=== PATIENT | male | born 1940 | race Caucasian/White ===

== ENCOUNTER → 2018-09-12 07:42 | Outpatient (CLI) | payer MEDICARE, SELFPAY ==
--- NOTE | 2018-09-12 07:44 | CA_ITS ---
PROCEDURE: 2-D M-mode and color Doppler study INDICATIONS FOR THE TEST: Chest pain + COPD Heart Murmur Tobacco Smokingex Palpitations+ Fatigue+ Syncope Edema Hypertension+Diabetes Mellitus Rheumatic Fever SOB+LOPEZ Obesity Hyperlipidemia Family History HD Additional History CABG PATIENT INFORMATION HEIGHT: 70 WEIGHT:169 GENDER: Male B/P:131/79 2-D/M-MODE INTERPRETATION: 2-D MEASUREMENTS OBSERVED VALUES IN CMS Right Ventricular Dimension (RVDd) 3.2 Interventricular Septum (Thickness)(IVsd) 1.6 Left Ventricular Internal Dimensions(LVIDd) 6.7 Left Ventricular Posterior Wall (Thickness)(LVPWd) 1.1 Aortic Root 3.1 Aortic Cusp Separation 2.6 Left Atrial Dimensions (LAD) 5.7 2D 1. Left atrium is moderately enlarged, left ventricle is mildly dilated, there is mild concentric left ventricular hypertrophy, visually estimated ejection fraction 50-55% with no regional wall motion abnormality, endocardial surface of poorly visualized 2. The right atrium and right ventricle are mildly enlarged with normal contractility. 3. The aortic valve is thickened and calcified, leaflet continue to display mobility. 4. The mitral valve has mitral calcification, there is mitral valve prolapse seen of the posterior mitral leaflet. There is no mitral stenosis. 5. The tricuspid valve is grossly normal. 6. The pulmonic valve is poorly present. 7. No significant pericardial effusion noted. DOPPLER INTERROGATION: Doppler interrogation of the aortic, mitral and tricuspid valvular presence of moderate aortic, severe mitral and mild tricuspid regurgitation, tricuspid regurgitation jet is inadequate for calculation of the right ventricular systolic pressure, diastolic parameters are inconclusive. CONCLUSION: 1. Moderately enlarged left atrium, mildly dilated left ventricle, mild concentric left ventricular hypertrophy, visually estimated ejection fraction 50-55% with no regional wall motion abnormality, diastolic parameters are inconclusive. 2. Thickened and calcified aortic valve without aortic stenosis, there is moderate aortic insufficiency. 3. Abnormal mitral valve as described above with prolapse of the posterior mitral leaflet, there is severe mitral regurgitation, there is no mitral stenosis. 4. Mild tricuspid regurgitation 5. The transesophageal echocardiogram is recommended for further evaluation of the aortic and mitral valve disease.
--- NOTE | 2018-09-12 08:04 | NM_ITS ---
CARDIOLITE SPECT MYOCARDIAL PERFUSION LEXISCAN, REST AND STRESS: [facility] REVIEW QGS EF AND WALL MOTION EVALUATION: QPS - PERFUSION EVALUATION HISTORY: a-fib DOSE: 10.6 mCi technetium 99m mibi intravenously at rest followed by 31.2 mCi technetium 99m mibi following the intravenous ministration of 0.4 mg of Lexiscan. Resting blood pressure is 116/63. Stress blood pressure 103/50. FINDINGS: Ejection fraction is calculated to be 50%. Stress images reveal mildly decreased activity in the inferior wall with mild left ventricular dilatation. Rest images reveal moderately decreased activity within the inferior wall. Gated images calculated ejection fraction of 50% with normal wall motion IMPRESSION: Reverse redistribution in the inferior wall accompanied by left ventricular dilatation and normal ejection fraction.. Clinical correlation is advised
--- NOTE | 2018-09-12 08:44 | HMH.ITSHM ---
Current Home Medications as stated by this patient Luis Simeon or labor relations representative. []XARELTO CARDIA LISINOPRIL CRESTOR CARVEDILOL VITAMINS PLAVIX
== END ==
PROVIDERS: PCP Family Medicine; Visit Provider Physician Assistant
DX: I11.9 Hypertensive heart disease without heart failure (principal); I25.10 Atherosclerotic heart disease of native coronary artery without angina pectoris; I48.91 Unspecified atrial fibrillation
CPT/HCPCS: 78452; 93017; 93306; A9502; J2785

== ENCOUNTER → 2018-09-17 14:45 | Outpatient (POV) | payer MEDICARE, SELFPAY | PROVIDERS: Visit Provider Nurse Practitioner Family | DX: Z00.00 Encounter for general adult medical examination without abnormal findings (principal) ==

== ENCOUNTER 2018-09-18 08:51 | Outpatient (CLI) | payer MEDICARE, SELFPAY ==
[2018-09-18] VITALS (12 sets, daily range): BP systolic 92–106; BP diastolic 49–58; PULSE 68–83; RESP 18–20; TEMP 36.1–36.9; O2SAT 95–98; BMI 24.3
[2018-09-18 15:05] LABS: Hemoglobin 8.1 g/dL (14.1-18.0)
--- NOTE | 2018-09-18 16:36 | PC.NURSE ---
called results to [facility];
== END 2018-09-18 15:15 | disposition home or self-care (01) ==
LOC: INF 08:53
PROVIDERS: Visit Provider Internal Medicine Gastroenterology
DX: D64.89 Other specified anemias (principal); K59.00 Constipation, unspecified
CPT/HCPCS: 36430; 85014; 85018; 86850; P9016

== ENCOUNTER 2018-09-20 08:34 | Outpatient (CLI) | payer MEDICARE, SELFPAY ==
[2018-09-20 08:35] VITALS: BMI 24.9
[2018-09-20 09:16] LABS: Basophils % 0.7 % (0.1-2.0); Eosinophils # 0.1 K/mm3 (0.0-0.4); Hematocrit 27.8 % (42.0-52.0); Hemoglobin 8.7 g/dL (14.1-18.0); Lymphocytes # 1.2 K/mm3 (0.7-4.5); Lymphocytes % 26.7 % (10-50); Mean Corpuscular HGB Conc 31.1 g/dL (31.8-35.4); Mean Corpuscular Hemoglobin 29.9 pg (27.0-31.2); Mean Platelet Volume 7.9 fl (7.4-10.4); Monocytes # 0.3 K/mm3 (0.1-1.0); Monocytes % 6.3 % (1.7-9.3); Neutrophils # 2.9 K/mm3 (1.8-7.8); Neutrophils % 64.4 % (37.0-80.0); Platelet Count 347 K/mm3 (142-424); Red Cell Distribution Width 16.6 % (11.5-17.5); Reticulocyte % (Auto) 7.5 % (0.9-3.2); White Blood Count 4.5 K/mm3 (4.8-10.8)
[2018-09-20 09:54] LABS: Ferritin 46 ng/mL (8-388)
[2018-09-21 08:26] LABS: Iron 23 ug/dL (38-169); UIBC 377 ug/dL (111-343)
[2018-09-21 17:54] LABS: Iron Saturation 6 % (15-55)
== END 2018-09-20 09:30 | disposition home or self-care (01) ==
LOC: INF 08:34
PROVIDERS: Visit Provider Nurse Practitioner Family
DX: D64.89 Other specified anemias (principal); E61.1 Iron deficiency
CPT/HCPCS: 36415; 82728; 83540; 83550; 85025; 85044

== ENCOUNTER → 2018-10-09 08:40 | Outpatient (CLI) | payer MEDICARE, SELFPAY ==
[2018-10-09 09:27] LABS: Basophils # 0.1 K/mm3 (0-0.2); Eosinophils # 0.1 K/mm3 (0.0-0.4); Eosinophils % 2.2 % (0.1-12.0); Hematocrit 31.9 % (42.0-52.0); Hemoglobin 9.5 g/dL (14.1-18.0); Lymphocytes # 1.6 K/mm3 (0.7-4.5); Lymphocytes % 27.6 % (10-50); Mean Corpuscular HGB Conc 29.8 g/dL (31.8-35.4); Mean Corpuscular Volume 90.5 fl (80-94); Monocytes # 0.4 K/mm3 (0.1-1.0); Monocytes % 7.3 % (1.7-9.3); Neutrophils # 3.6 K/mm3 (1.8-7.8); Platelet Count 335 K/mm3 (142-424); Red Blood Count 3.52 M/mm3 (4.60-6.20); Red Cell Distribution Width 15.6 % (11.5-17.5); White Blood Count 5.8 K/mm3 (4.8-10.8)
== END ==
PROVIDERS: Visit Provider Internal Medicine
DX: D64.9 Anemia, unspecified (principal); E78.2 Mixed hyperlipidemia; I11.0 Hypertensive heart disease with heart failure; I11.9 Hypertensive heart disease without heart failure; I25.10 Atherosclerotic heart disease of native coronary artery without angina pectoris; I35.1 Nonrheumatic aortic (valve) insufficiency; I48.0 Paroxysmal atrial fibrillation; Z79.01 Long term (current) use of anticoagulants
CPT/HCPCS: 36415; 85025

== ENCOUNTER → 2018-10-26 09:43 | Outpatient (CLI) | payer MEDICARE, SELFPAY ==
[2018-10-26 10:46] LABS: Basophils % 0.3 % (0.1-2.0); Eosinophils # 0.1 K/mm3 (0.0-0.4); Eosinophils % 1.2 % (0.1-12.0); Hematocrit 33.2 % (42.0-52.0); Hemoglobin 9.8 g/dL (14.1-18.0); Lymphocytes # 1.8 K/mm3 (0.7-4.5); Lymphocytes % 23.6 % (10-50); Mean Corpuscular HGB Conc 29.6 g/dL (31.8-35.4); Mean Corpuscular Hemoglobin 24.8 pg (27.0-31.2); Mean Corpuscular Volume 83.8 fl (80-94); Mean Platelet Volume 6.2 fl (7.4-10.4); Monocytes # 0.6 K/mm3 (0.1-1.0); Monocytes % 7.8 % (1.7-9.3); Neutrophils # 5.1 K/mm3 (1.8-7.8); Platelet Count 345 K/mm3 (142-424); Red Blood Count 3.96 M/mm3 (4.60-6.20); Red Cell Distribution Width 15.4 % (11.5-17.5); White Blood Count 7.7 K/mm3 (4.8-10.8)
[2018-10-26 12:03] LABS: Ferritin 122 ng/mL (8-388)
[2018-10-27 08:40] LABS: Iron 96 ug/dL (38-169); UIBC 330 ug/dL (111-343)
[2018-10-27 18:16] LABS: Iron Saturation 23 % (15-55)
== END ==
PROVIDERS: Visit Provider Nurse Practitioner Family
DX: D64.89 Other specified anemias (principal); D50.0 Iron deficiency anemia secondary to blood loss (chronic); K59.00 Constipation, unspecified
CPT/HCPCS: 36415; 82728; 83540; 83550; 85025; 85044

== ENCOUNTER → 2018-12-20 11:08 | Outpatient (CLI) | payer MEDICARE, SELFPAY ==
[2018-12-20 11:35] LABS: Basophils % 0.1 % (0.1-2.0); Eosinophils % 0.2 % (0.1-12.0); Hematocrit 39.2 % (42.0-52.0); Hemoglobin 12.1 g/dL (14.1-18.0); Lymphocytes # 0.9 K/mm3 (0.7-4.5); Lymphocytes % 10.6 % (10-50); Mean Corpuscular HGB Conc 30.7 g/dL (31.8-35.4); Mean Corpuscular Hemoglobin 24.8 pg (27.0-31.2); Mean Corpuscular Volume 80.6 fl (80-94); Mean Platelet Volume 6.9 fl (7.4-10.4); Monocytes # 0.5 K/mm3 (0.1-1.0); Neutrophils # 7.3 K/mm3 (1.8-7.8); Neutrophils % 83.2 % (37.0-80.0); Platelet Count 235 K/mm3 (142-424); Red Blood Count 4.87 M/mm3 (4.60-6.20); Red Cell Distribution Width 18.2 % (11.5-17.5); White Blood Count 8.8 K/mm3 (4.8-10.8)
[2018-12-20 13:44] LABS: Ferritin 35 ng/mL (8-388)
[2018-12-21 09:20] LABS: Iron 34 ug/dL (38-169); UIBC 424 ug/dL (111-343)
[2018-12-21 10:11] LABS: Iron Saturation 7 % (15-55)
[2018-12-21 17:11] LABS: Vitamin B12 352 pg/mL (232-1245)
== END ==
PROVIDERS: Visit Provider Nurse Practitioner Family
DX: D50.0 Iron deficiency anemia secondary to blood loss (chronic) (principal); K25.9 Gastric ulcer, unspecified as acute or chronic, without hemorrhage or perforation; B96.81 Helicobacter pylori [H. pylori] as the cause of diseases classified elsewhere
CPT/HCPCS: 36415; 82607; 82728; 83540; 83550; 85025

== ENCOUNTER → 2019-01-02 09:08 | Outpatient (CLI) | payer MEDICARE, SELFPAY ==
[2019-01-05 13:44] LABS: H. pylori Breath Test Positive (Negative)
== END ==
PROVIDERS: Visit Provider Nurse Practitioner Family
DX: D50.0 Iron deficiency anemia secondary to blood loss (chronic) (principal); K25.9 Gastric ulcer, unspecified as acute or chronic, without hemorrhage or perforation; B96.81 Helicobacter pylori [H. pylori] as the cause of diseases classified elsewhere
CPT/HCPCS: 83013

== ENCOUNTER → 2019-06-11 08:14 | Outpatient (CLI) | payer MEDICARE, SELFPAY ==
[2019-06-11 09:12] LABS: Alanine Aminotransferase 36 U/L (12-78); Albumin Level 4.1 g/dl (3.5-5.0); Alkaline Phosphatase 52 U/L (38-126); Aspartate Amino Transferase 43 U/L (17-59); Bilirubin,Indirect 0.4 mg/dL (0.0-0.9); Bilirubin,Total 0.4 mg/dl (0.2-1.3); Bilirubin,Unconjugated 0.6 mg/dL (0.0-1.1); Chol/HDL Ratio 2.5 (1-3.5); Cholesterol 125 mg/dl (140-200); HDL Cholesterol 50 mg/dl (40-60); Total Protein,Serum 6.6 g/dl (6.3-8.2); Triglycerides 74 mg/dl (30-150); VLDL Cholesterol 15 mg/dL (0-40)
[2019-06-11 09:23] LABS: Direct LDL Cholesterol 52.25 mg/dL (100-129)
== END ==
PROVIDERS: Visit Provider Internal Medicine
DX: E78.5 Hyperlipidemia, unspecified (principal); I20.8 Other forms of angina pectoris
CPT/HCPCS: 36415; 80061; 80076

== ENCOUNTER → 2019-10-07 08:16 | Outpatient (CLI) | payer MEDICARE, SELFPAY ==
[2019-10-07 10:04] LABS: Iron 71 ug/dL (49-181)
[2019-10-07 10:17] LABS: Total Iron Binding Capacity 435 ug/dL (261-462)
[2019-10-07 10:27] LABS: Basophils % 0.4 % (0.1-2.0); Eosinophils # 0.1 K/mm3 (0.0-0.4); Eosinophils % 0.7 % (0.1-12.0); Hematocrit 39.7 % (42.0-52.0); Hemoglobin 13.5 g/dL (14.1-18.0); Lymphocytes # 1.7 K/mm3 (0.7-4.5); Lymphocytes % 24.5 % (10-50); Mean Corpuscular Hemoglobin 30.4 pg (27.0-31.2); Mean Corpuscular Volume 89.6 fl (80-94); Mean Platelet Volume 7.2 fl (7.4-10.4); Monocytes # 0.5 K/mm3 (0.1-1.0); Monocytes % 7.3 % (1.7-9.3); Neutrophils # 4.8 K/mm3 (1.8-7.8); Neutrophils % 67.1 % (37.0-80.0); Platelet Count 225 K/mm3 (142-424); Red Blood Count 4.43 M/mm3 (4.60-6.20); Red Cell Distribution Width 14.6 % (11.5-17.5); White Blood Count 7.1 K/mm3 (4.8-10.8)
[2019-10-07 10:36] LABS: Ferritin 34.8 ng/ml (17.9-464)
[2019-10-09 04:48] LABS: H. pylori Breath Test Positive (Negative)
== END ==
PROVIDERS: Visit Provider Internal Medicine Gastroenterology
DX: D50.0 Iron deficiency anemia secondary to blood loss (chronic) (principal); K59.09 Other constipation; K25.9 Gastric ulcer, unspecified as acute or chronic, without hemorrhage or perforation; B96.81 Helicobacter pylori [H. pylori] as the cause of diseases classified elsewhere
CPT/HCPCS: 36415; 82728; 83013; 83540; 83550; 85025

== ENCOUNTER → 2019-12-10 08:36 | Outpatient (CLI) | payer MEDICARE, SELFPAY ==
--- NOTE | 2019-12-10 08:37 | CA_ITS ---
APPROVED REPORT EXAM: Comprehensive 2D, Doppler, and color-flow Echocardiogram Sql Analyst: Yessica Weller RDCS Ht: 137 ft 9 in Wt: 178lbs BSA: 19.66 BP: 137/80 mmHg Indications: AVR PORCINE,MITRAL RING,AF,CABG, 2D Dimensions LVOT 2.45 cm (M/F) 1.5-2.5 M-Mode Dimensions RVDd 3.73 cm (0.9-2.6) LVDd 4.91 cm (3.5-5.7) LVDs 4.28 cm (3.5-5.7) IVSd 1.27 cm (0.6-1.1) PWd 1.02 cm (0.6-1.1) EF (Teich) 27.50% FS 12.80% EDV (Teich) 113.40 mL ESV (Teich) 82.20 mL LV Diastology E/A Ratio 1.40 Aortic Valve LVOT Max 83.00 (70-110 cm/s) LVOT VTI 15.85 cm Mitral Valve MV A Velocity 60.00 (40-130 cm/s) Left Ventricle Left atrium is mildly enlarged, left ventricle is normal size, mild concentric left ventricular hypertrophy, visually estimated ejection fraction 55% with no regional wall motion abnormality, diastolic parameters are inconclusive. Right Ventricle Right atrium and right ventricular mildly enlarged with normal contractility. Aortic Valve There is a bioprosthetic valve in the aortic position, the valve is well-seated. The mean gradient and aortic outflow velocities within normal range for the prosthetic valve. There is no aortic insufficiency. Mitral Valve Mitral inflow velocities within normal range, there is no mitral inflow obstruction, there is mild mitral regurgitation. Tricuspid Valve Tricuspid valve is grossly normal, there is mild tricuspid regurgitation, tricuspid regurgitation jet velocity is inadequate for calculation of the right ventricular systolic pressure. Pulmonic Valve Pulmonic valve is poorly visualized. Great Vessels Aortic root is normal size. Pericardium No significant pericardial effusion noted. Conclusion 1. Mildly enlarged left atrium, normal left ventricular size, mild concentric left ventricular hypertrophy, visually estimated ejection fraction 55% with no regional wall motion abnormality, diastolic parameters are within normal range. 2. Normal functioning bioprosthetic valve in the aortic position without aortic outflow obstruction or aortic insufficiency. 3. Status post mitral valve ring, there is mild mitral regurgitation, there is no mitral inflow obstruction. 4. Mild tricuspid regurgitation. 5. No significant pericardial effusion noted. Electronically signed by : Ted Adams, 12/10/2019 22:15:30
== END ==
PROVIDERS: PCP Family Medicine; Visit Provider Nurse Practitioner Family
DX: Q21.1 Atrial septal defect (principal); Z95.2 Presence of prosthetic heart valve
CPT/HCPCS: 93306

== ENCOUNTER → 2020-03-18 11:02 | Outpatient (CLI) | payer MEDICARE, SELFPAY | PROVIDERS: PCP Family Medicine; Visit Provider Internal Medicine | DX: G47.33 Obstructive sleep apnea (adult) (pediatric) (principal) | CPT/HCPCS: G0399 ==

== ENCOUNTER → 2020-07-10 11:34 | Outpatient (CLI) | payer MEDICARE, SELFPAY | PROVIDERS: PCP Family Medicine; Visit Provider Nurse Practitioner Family | DX: G47.33 Obstructive sleep apnea (adult) (pediatric) (principal) | CPT/HCPCS: 94762 ==

== ENCOUNTER → 2021-03-22 12:55 | Outpatient (CLI) | payer MEDICARE, SELFPAY ==
--- NOTE | 2021-03-22 12:56 | CA_ITS ---
APPROVED REPORT EXAM: Comprehensive 2D, Doppler, and color-flow Echocardiogram Boat Canvas Installer: ZANDRA Karimi, RVS Ht: 5 ft 9 in Wt: 182lbs BSA: 1.99 BP: 134/77 mmHg Indications: AVR-porcine, MV clip, Afib, CAD, SOA, S/p COVID 01/2021 2D Dimensions IVSd 1.40 cm LVEF (Visual) 63.50 % PWd 1.20 cm LA Volume 89.70 mL LVDd 4.94 cm LA Volume Index 45.647247 mL/m2 (M/F) 16-34 LVDs 3.01 cm Left Atrium 6.21 cm LVOT 1.94 cm (M/F) 1.5-2.5 M-Mode Dimensions RVDd 1.68 cm (0.9-2.6) LA Diam 5.72 cm (1.9-4.0) LVDd 5.10 cm (3.5-5.7) Ao Diam 3.67 cm (2.0-3.7) LVDs 3.75 cm (3.5-5.7) IVSd 0.93 cm (0.6-1.1) PWd 0.89 cm (0.6-1.1) EF (Teich) 51.50% FS 26.50% EDV (Teich) 123.80 mL TAPSE 1.59 (<1.7) ESV (Teich) 60.00 mL LV Diastology E Decel Time 183.00 (160-240 msec) E/A Ratio 2.34 MED E' 10.30 (< 7 cm/sec) MED A' 10.40 cm/s E'/MED E' Ratio 12.95 (>14) LAT E' 9.70 (<10 cm/sec) LAT A' 7.00 cm/s E/LAT E' Ratio 13.75 (>14) Pulm Vein s 11.00 cm/sec Aortic Valve LVOT Max 91.00 (70-110 cm/s) LVOT VTI 16.85 cm AoV Peak Bam. 228.00 (50-130 cm/s) AI PHT 370.00 ms AO Peak GR. 20.80 mmHg AO Mean GR. 10.70 (<5 mmHg) AO VTI 39.78 (18-25 cm) GRICELDA (VTI) 1.25 (2.5-4.5 cm2) Mitral Valve MV E Max Bam. 133.00 (40-130 cm/s) MV A Velocity 57.00 (40-130 cm/s) E/A Ratio 2.34 MV Decel. Time 183.00 (160-240 ms) MV Mean Gr. 2.40 (<2mmHg) MV PHT 54.00 ms Pulmonary Valve PV Peak Velocity 69.00 (50-150 cm/s) MD End VMAX 186.00 cm/s Tricuspid Valve TR P. Velocity 274.00 cm/s RAP Estimate 10.00 mmHg RVSP 40.00 mmHg Left Ventricle Left atrium is moderately enlarged, left ventricle is normal size, mild concentric left ventricular hypertrophy, visually estimated ejection fraction 50% with no obvious regional wall motion abnormality, endocardial subsequently visualized diastolic parameters are inconclusive. Right Ventricle Right atrium and right ventricle are normal size and contractility. Aortic Valve There is bioprosthetic valve noted in the aortic position, the mean gradient across valve is 11 mmHg, which is within acceptable range for this type of valve, there is trace aortic insufficiency. Mitral Valve Mitral valve has mitral calcification which extends in both anterior posterior mitral leaflet, historically patient has a mitral valve clip. There is no significant mitral inflow obstruction seen, there is mild mitral regurgitation. Tricuspid Valve Tricuspid valve grossly normal, there is mild tricuspid regurgitation, calculated right ventricular systolic pressure is 40 mmHg. Pulmonic Valve Pulmonic valve is poorly visualized. Great Vessels Aortic root is normal size. Inferior vena cava is poorly visualized. Pericardium No significant pericardial effusion noted. Conclusion 1. Moderately enlarged left atrium, normal left ventricular size, mild concentric left ventricular hypertrophy, visually estimated ejection fraction 50% with no regional wall motion abnormality, endocardial subsequently visualized, diastolic parameters are inconclusive. 2. Bioprosthetic valve in the aortic position with acceptable gradients, there is no aortic outflow obstruction, there is trace aortic insufficiency. 3. Status post mitral valve clip, there is no significant mitral inflow obstruction, there is mild mitral regurgitation. 4. Mild
== END ==
PROVIDERS: PCP Family Medicine; Visit Provider Internal Medicine
DX: I25.10 Atherosclerotic heart disease of native coronary artery without angina pectoris; I48.0 Paroxysmal atrial fibrillation; I07.1 Rheumatic tricuspid insufficiency; I11.9 Hypertensive heart disease without heart failure; I34.0 Nonrheumatic mitral (valve) insufficiency; I34.1 Nonrheumatic mitral (valve) prolapse; I35.1 Nonrheumatic aortic (valve) insufficiency; Q21.1 Atrial septal defect; G45.8 Other transient cerebral ischemic attacks and related syndromes; E78.2 Mixed hyperlipidemia; Z95.2 Presence of prosthetic heart valve
CPT/HCPCS: 93306

== ENCOUNTER → 2021-07-05 12:41 | Outpatient (CLI) | payer MEDICARE, SELFPAY ==
--- NOTE | 2021-07-05 | CA_ITS ---
APPROVED REPORT EXAM: Limited 2D Echocardiogram Executive Relations Specialist: Allison Dumont, RCS, RVS Ht: 5 ft 9 in Wt: 186lbs BSA: 2.00 BP: 126/64 mmHg Indications: EF check, AVR-porcine, MV clip, Afib, CAD s/p COVID, SOB 2D Dimensions IVSd 1.45 cm LVEF (Visual) 42.20 % PWd 0.93 cm LVDd 6.28 cm LVDs 4.95 cm M-Mode Dimensions RVDd 4.08 cm (0.9-2.6) LVDd 5.90 cm (3.5-5.7) LVDs 4.80 cm (3.5-5.7) IVSd 1.53 cm (0.6-1.1) PWd 1.32 cm (0.6-1.1) EF (Teich) 44.60% FS 22.60% EDV (Teich) 194.00 mL ESV (Teich) 107.50 mL Conclusion 1. Limited echocardiogram was performed to evaluate left ventricular systolic function 2. Visually estimated ejection fraction 50% involved reviewed with no regional wall motion abnormality. 3. No significant pericardial effusion noted. Electronically signed by : Ted Adams MD 07/05/2021 20:53:10
== END ==
PROVIDERS: PCP Family Medicine; Visit Provider Physician Assistant
DX: I25.10 Atherosclerotic heart disease of native coronary artery without angina pectoris (principal)
CPT/HCPCS: 93308